=== PATIENT | male | born 1990 | race Caucasian/White ===

== ENCOUNTER 2018-12-17 17:52 | Emergency (ER) | payer OTHER ==
[~2018-12-17] VITALS: Ht 188 cm; Wt 105.4 kg
[2018-12-17] MEDS ORDERED: ADDE30CA3 PO (18:09)
--- NOTE | 2018-12-17 19:17 | REP ---
HISTORY: Pain after trauma. No sunshine view was obtained. FINDINGS: The compartments are symmetric and relatively well maintained. There is no acute fracture or destructive osseous lesion. Electronically Signed by Kevin Barajas DO 12/17/2018 07:49 P
[2018-12-17] MEDS ORDERED: IBUPROFEN 600 MG TAB PO ONE (21:00)
[2018-12-17 22:42] LABS: HEMOGLOBIN 15.3 g/dl (13.5-17.5); MEAN CORPUSCULAR HEMOGLOBIN 31.1 pg (27.0-33.0); MEAN CORPUSCULAR VOLUME 91.5 fl (80.0-96.0); PLATELET COUNT, AUTOMATED 173 10^3/uL (150-450); RED BLOOD COUNT 4.92 10^6/uL (4.30-6.10); WHITE BLOOD COUNT 6.4 10^3/uL (4.0-10.0)
--- NOTE | 2018-12-17 22:59 | REPVR ---
EXAM: CT Left Lower Extremity Without Contrast, Knee EXAM DATE/TIME: 12/17/2018 10:50 PM CLINICAL HISTORY: 27 years old, male; Injury or trauma; Fall; Work related; Initial encounter; Blunt trauma; Knee; Left TECHNIQUE: Imaging protocol: CT of the Left lower extremity without contrast was performed. Exam focused on the knee. Radiation optimization: All CT scans at this facility use at least one of these dose optimization techniques: automated exposure control; mA and/or kV adjustment per patient size (includes targeted exams where dose is matched to clinical indication); or iterative reconstruction. COMPARISON: No relevant prior studies available. FINDINGS: Skin thickening and subcutaneous soft tissue edema centered around the patella. There are small air bubbles superficial to the patella and medial retinaculum, suggesting a skin laceration. No foreign body. No intra-articular air. No significant knee joint effusion. Normal osseous alignment. No acute fracture. No osseous lesion. Knee joint and proximal tibiofibular joint spaces are well-maintained. IMPRESSION: Anterior superficial soft tissue injury involving the knee with superficial subcutaneous air and soft tissue edema. No evidence of knee joint violation, joint effusion or osseous abnormality Electronically signed by: Osvaldo Longoria On 12/17/2018 22:59:34 PM
[2018-12-17 23:02] LABS: ERYTHROCYTE SEDIMENTATION RATE 1 mm/hr (0-15)
[2018-12-17 23:49] VITALS: BP 114/63
--- NOTE | 2018-12-18 07:45 | REP ---
Clinical: Trauma. Technique: Neutral and frog lateral views of the left femur. Findings: Osseous structures, joint spaces, and surrounding soft tissues are normal. No acute fracture or dislocation. Impression: No acute fracture or dislocation. Electronically Signed by David Grajeda MD 12/18/2018 07:37 A
--- NOTE | 2018-12-18 07:48 | REP ---
Clinical: Trauma. Technique: AP and lateral views of the left tibia / fibula. Findings: No acute fracture dislocation. Skeletal structures, joint spaces, and surrounding soft tissues appear normal. The ankle and distal tibia / fibula are incompletely evaluated and if associated injuries suggested, complete ankle series should be considered. Impression: As above. No obvious acute fracture. Consider complete ankle series if warranted. Electronically Signed by David Grajeda MD 12/18/2018 07:40 A
== END 2018-12-17 23:56 | disposition home or self-care (01) ==
LOC: M ED 17:52
DX: S80.212A Abrasion, left knee, initial encounter (principal); M25.462 Effusion, left knee; M25.562 Pain in left knee; W10.8XXA Fall (on) (from) other stairs and steps, initial encounter; Y92.89 Other specified places as the place of occurrence of the external cause; Y93.02 Activity, running; Y99.1 Military activity; F90.9 Attention-deficit hyperactivity disorder, unspecified type; F17.210 Nicotine dependence, cigarettes, uncomplicated; Z79.899 Other long term (current) drug therapy

== ENCOUNTER 2020-03-15 09:34 | Day surgery (SDC) | payer OTHER ==
[~2020-03-15] VITALS: Ht 182.9 cm; Wt 107.7 kg
[~2020-03-15 09:34] MED LIST: ADDE30CA3 PO; LR 1,000 ML IV ONE
[2020-03-15] MEDS ORDERED: LIDOCAINE W/EPINEPHRINE 1% 20ML VIAL As Ordered ONE (11:46)
[2020-03-15] MEDS ORDERED: EPINEPHrine 1MG/ML INJ 30ML MD-VIAL As Ordered ONE (11:46)
[2020-03-15] MEDS ORDERED: METHYLENE BLUE 0.5% (5MG/ML) 10 ML AMP (PROVAYBLUE) As Ordered ONE (11:47)
[2020-03-15] MEDS ORDERED: propofoL 200 MG/20 ML VIAL As Ordered ONE (12:19)
[2020-03-15] MEDS ORDERED: SUGAMMADEX SODIUM 500 MG/5 ML VIAL (BRIDION) As Ordered ONE (12:19)
[2020-03-15] MEDS ORDERED: ROCURONIUM BROMIDE 50 MG/5 ML VIAL As Ordered ONE (12:19)
[2020-03-15] MEDS ORDERED: MIDAZOLAM INJ 2MG/2ML VIAL (J2250 PER 1MG) As Ordered ONE (12:19)
[2020-03-15] MEDS ORDERED: fentaNYL 100 MCG/2 ML INJECTION (J3010) As Ordered ONE ×2 (12:19→12:20)
[2020-03-15] MEDS ORDERED: dexameTHASONE 4 MG/ML 1ML VIAL (J1100 PER 1MG) As Ordered ONE (12:19)
[2020-03-15] MEDS ORDERED: ONDANSETRON 4MG/2ML VIAL As Ordered ONE (12:19)
[2020-03-15] MEDS ORDERED: METOCLOPRAMIDE INJ 10MG/2ML VIAL (J2765 PER 1) As Ordered ONE (12:19)
[2020-03-15] MEDS ORDERED: LIDOCAINE 2% 100MG/5ML SDV (FOR ANES.) As Ordered ONE (12:19)
[2020-03-15] MEDS ORDERED: ACETAMINOPHEN 1000MG 100ML IV BTL (OFIRMEV) (J0131 PER 10MG) As Ordered ONE (12:27)
[2020-03-15] MEDS ORDERED: DESFLURANE 240 ML INHALANT As Ordered ONE (12:52)
[2020-03-15] MEDS ORDERED: ACETAMINOPH W/CODEINE #3 TAB UD PO PRN (14:15)
[2020-03-15] MEDS ORDERED: LR 1,000 ML IV SCH ×2 (14:15→14:45)
[2020-03-15] MEDS ORDERED: HYDROMORPHONE HCL 0.5 MG/ 0.5 ML SYRINGE (J1170 PER 1) IV PRN (14:45)
[2020-03-15] MEDS ORDERED: oxyCODONE 5MG TAB PO PRN (14:45)
[2020-03-15] MEDS ORDERED: fentaNYL 100 MCG/2 ML INJECTION (J3010) IV PRN (14:45)
[2020-03-15] MEDS ORDERED: ONDANSETRON 4MG/2ML VIAL IV PRN (14:45)
[2020-03-15 14:49] VITALS: BP 161/89
--- NOTE | 2020-03-16 11:23 | RO ---
OPERATIVE NOTE DATE OF OPERATION: 03/15/2020 PREOPERATIVE DIAGNOSES: 1. Deviated nasal septum. 2. Chronic rhinitis. POSTOPERATIVE DIAGNOSES: 1. Deviated nasal septum. 2. Chronic rhinitis. OPERATIVE PROCEDURES: 1. Septoplasty. 2. Bilateral turbinectomies. FINDINGS: The septum was deviated towards the right side. There was swelling of the inferior turbinates. There was deviation of the septum towards the left side posteriorly. DESCRIPTION OF PROCEDURE: Under general anesthesia, the patient was prepped and draped in the usual manner. I used pledgets soaked in adrenaline 1:100,000 and infiltrated with Lidocaine 0.5%. There was more than the usual amount of bleeding. I made an incision on the left side and elevated the subperichondrial and periosteal plane. I dissected the mucoperichondrium off of both sides of the quadrangular cartilage. I the quadrangular cartilage from ethmoid plate and maxillary crest. I removed the central portion of the septum and then took it out. It was deviated towards the right side, so I scored it on one side so it would straighten out the cartilage and then re-inserted at the end of the procedure. I removed portions of the maxillary crest, which were deviated. I then sutured the anterior inferior aspect of the septum to the anterior nasal spine. There was a tear in the mucosa of the septum on the right side. I reinserted the cartilage. I did remove portions of the ethmoid plate. I removed portions of the as well. Once this was done, then I reinserted the cartilage and then, I sutured that in with interrupted 3-0 Chromic suture. Once that was done, then I sutured the under part of the septum with some 4-0 Vicryl. I made an incision to the anterior part of the inferior turbinates on both sides and then, I trimmed part of the pedro anteriorly. I sutured the mucosa back with 4-0 Vicryl. I put Gelfoam between the septum and lateral nasal wall on both sides. The patient tolerated the procedure well. Approximately 50 mL estimated blood loss. The patient was extubated and transferred to the recovery room in excellent condition.
== END 2020-03-15 15:07 | disposition home or self-care (01) ==
LOC: M SDC 09:34
PROVIDERS: ATTEND Otolaryngology
DX: J34.2 Deviated nasal septum (principal); J31.0 Chronic rhinitis; F90.9 Attention-deficit hyperactivity disorder, unspecified type; F41.9 Anxiety disorder, unspecified; F32.9 Major depressive disorder, single episode, unspecified; F17.218 Nicotine dependence, cigarettes, with other nicotine-induced disorders; Z79.899 Other long term (current) drug therapy
CPT/HCPCS: 30140; 30520; 88300; J0131; J1100; J2250; J2405; J2765; J3010; Q9968

== ENCOUNTER 2021-05-01 18:07 | Emergency (ER) | payer OTHER ==
[~2021-05-01] VITALS: Ht 182.9 cm; Wt 104.5 kg
[~2021-05-01 18:07] MED LIST changes: -LR 1,000 ML IV ONE
[2021-05-01 23:12] LABS: HEMATOCRIT 44.1 % (42.0-52.0); HEMOGLOBIN 14.7 g/dl (13.5-17.5); MEAN CORPUSCULAR HEMOGLOBIN 29.9 pg (27.0-33.0); MEAN CORPUSCULAR HGB CONC 33.3 g/dl (32.0-36.5); MEAN CORPUSCULAR VOLUME 89.8 fl (80.0-96.0); PLATELET COUNT, AUTOMATED 197 10^3/uL (150-450); RED BLOOD COUNT 4.91 10^6/uL (4.30-6.10)
[2021-05-01 23:50] LABS: ACETAMINOPHEN LEVEL < 2.0 UG/ML (10.0-30.0); ALBUMIN 3.6 GM/DL (3.2-5.2); ALT/SGPT 30 U/L (12-78); BILIRUBIN,DIRECT < 0.1 MG/DL (0.0-0.2); BILIRUBIN,TOTAL 0.2 MG/DL (0.2-1.0); BLOOD UREA NITROGEN 16 MG/DL (7-18); CALCIUM LEVEL 8.7 MG/DL (8.5-10.1); CARBON DIOXIDE LEVEL 31 MEQ/L (21-32); CHLORIDE LEVEL 110 MEQ/L (98-107); CREATININE FOR GFR 1.26 MG/DL (0.70-1.30); ETHYL ALCOHOL (ETHANOL) < 0.003 % (0.000-0.010); GLOMERULAR FILTRATION RATE > 60.0 (>60); GLUCOSE, FASTING 60 MG/DL (70-100); POTASSIUM SERUM 4.1 MEQ/L (3.5-5.1); SALICYLATE LEVEL < 1.7 MG/DL (5.0-30.0); SODIUM LEVEL 144 MEQ/L (136-145); TOTAL PROTEIN 6.5 GM/DL (6.4-8.2)
[2021-05-01 23:52] LABS: AMPHETAMINES LEVEL URINE NEGATIVE (NEGATIVE); BARBITURATES URINE NEGATIVE (NEGATIVE); BENZODIAZEPINES URINE NEGATIVE (NEGATIVE); CANNABINOIDS URINE NEGATIVE (NEGATIVE); COCAINE METABOLITE URINE NEGATIVE (NEGATIVE); METHADONE URINE NEGATIVE (NEGATIVE); OPIATES URINE NEGATIVE (NEGATIVE); PHENCYCLIDINE URINE NEGATIVE (NEGATIVE)
[2021-05-02] MEDS ORDERED: ADDE20CA3 PO (03:08)
[2021-05-02] MEDS ORDERED: HYDR-3363 PO (03:08)
[2021-05-02] MEDS ORDERED: HOME MED LIST COMPLETE! XX SCH (03:10)
[2021-05-02 15:24] VITALS: BP 124/74
== END 2021-05-02 15:29 ==
LOC: M ED 18:07
DX: R45.851 Suicidal ideations (principal); F32.A Depression, unspecified; Z79.899 Other long term (current) drug therapy